=== PATIENT | male | born 1970 | race Caucasian/White ===

== ENCOUNTER 2025-05-01 22:51 | Emergency (ER) | payer OTHER, SELFPAY ==
--- OUTSIDE RECORDS SUMMARY | 2025-05-01 23:04 | XMS_ITS | Encounter Summary ---
Author Organization [facility] Address [address] [place] [address] Care Team Providers Care Reel And Rewinder Operator Name Role Phone Sylvie Cardenas MD Primary Care Provider [phone] Encounter Details Date Type Department Care Team (Late st Contact Info) Description 04/30/2025 Orders Only [facility] [address] [address] Sylvie Cardenas MD [address] [place] [address] Encounter for preventive care; Colon cancer screening Social History Tobacco Use Types Packs/Day Years Used Date Smoking Tobacco: Never Smokeless Tobacco: Never Alcohol Use Standard Drinks/Week Comments Never 0 (1 standard drink = 0.6 oz pur e alcohol) Sex and Gender Information Value Date Recorded Sex Assigned at Not on file Legal Sex Male 6:51 PM EDT Gender Identity Not on file Sexual Orientation Not on file documented as of this encounter Plan of Treatment Scheduled Orders Name Type Priority Associated Diagnoses Orde r Schedule Cologuard colon cancer screening Lab Routine Encounter for preventive care Colon cancer screening Expected: 04/30/2025 (Approximate), Expires: 04/30/2026 documented as of this encounter Visit Diagnoses Diagnosis Encounter for preventive care Colon cancer screening Special screening for malignant neoplasms, colon documented in this encounter Care Teams Reel And Rewinder Operator Relationship Specialty Start Date End Date Sylvie Cardenas MD [address] [place] [address] PCP - General Family Medicine 06/05/23 documented as of this encounter
[2025-05-01 23:08] VITALS: BP 150/99; PULSE 86; TEMP 37; O2SAT 98; BMI 56.9
--- NOTE | 2025-05-02 00:06 | ED.ANIMALBI1 ---
HPI - Animal Bite General Chief Complaint: Animal Bite Stated Complaint: DOG BITE Time Seen by Provider: 05/01/25 23:14 Source: patient Source comment: Dog bite on 04/28/25 from unfamiliar dog that was on his property. Been using Tylenol, Ibuprofen, Neosporin and soaking in Epsom Salt to treat area on left hand palm and top of hand near thumb. Area is red and swelling is increasing in amount. Notes keeping bandages on area and drainage of clear to red color noted when bandage removed. Notes increase in level of pain in hand in last 24 hours. Trouble sleeping due to increase in pain. Limited movement of left index finger due to swelling and pain. Mode of arrival: walk-in Limitations: no limitations History of Present Illness HPI narrative: This 54-year-old male presents for evaluation of pain and swelling in his left hand. The patient lives in [place] near [facility]. He states on Monday he was out gathering up his chickens who were outside and there was a dog on a path near his house. He thought the dog had likely been at a local training facility nearby and gotten away from its grinder set up operator thread. He told the dog to sit down which it did and the patient attempted to look at the tags on the dog's collar when it bit him in the left hand. He has a puncture wound in his left thenar eminence and on the dorsal aspect of his left index finger. He is concerned that he may have a fracture of the first metacarpal on the left hand because he is having pain and swelling in this area and is having a hard time bending his fingers especially the left index finger. He has been soaking it in Epsom salt water. He denies any fevers or chills. He has no lymphangitic streaking. He does not know the date of his last tetanus shot. The patient is not concerned that the dog would have rabies as he states it was clearly somebody's pet, it was well-groomed, well behaved and had several tags on it indicating that it was registered and likely immunized. He does not wish to pursue rabies immunizations. Related Data Home Medications ?Medication ?Instructions ?Recorded ?Confirmed alprazolam 0.25 mg tablet (Xanax) 0.25 mg PO DAILY 05/01/25 05/01/25 citalopram 40 mg tablet (Celexa) 40 mg PO DAILY 05/01/25 05/01/25 Allergies Allergy/AdvReac Type Severity Reaction Status Date / Time No Known Drug Allergies Allergy Verified 05/01/25 23:57 Review of Systems ROS Status of ROS 10 or more systems reviewed and unremarkable except as noted in history and below PFSH PFSH Social History Little interest or pleasure in doing things: not at all Feeling down, depressed, or hopeless: not at all Exam Narrative Exam Narrative: Vital signs and Nursing Notes reviewed: Patient is afebrile with a normal pulse, blood pressure is elevated 150/99, he is not hypoxic with pulse ox of 98% on room air General: Awake, alert, oriented, no acute distress, lying comfortably on the stretcher HEENT: Normocephalic atraumatic, mucous membranes are moist and pink, eyes are clear, normal conjunctiva, vision is grossly intact Neck: Supple, no meningeal signs, no anterior or posterior cervical lymphadenopathy Chest: Lungs are clear to auscultation with good air entry, there is no wheezing rhonchi or rales appreciated no accessory muscle use, patient is speaking in complete sentences-no chest wall tenderness to palpation CVS: Regular rate and rhythm S1-S2, no murmurs rubs or gallops, pulses are brisk and equal bilaterally ABD: Soft, nondistended, nontender, no rebound guarding or rigidity, bowel sounds are normal, no pulsatile masses appreciated Extremities: There is tenderness and swelling in the left hand, there is a puncture wound in the left thenar eminence, there are 3 puncture wounds over the dorsal aspect of the left index finger with swelling and tenderness of the MCP joint of this finger as well as additional swelling of the index and ring fingers. The patient is not able to make a complete fist. Capillary refill in the extremity is normal. There is no lymphangitic streaking noted. Skin: Normal in appearance without rash,pallor, petechiae or purpura Neuro: No focal deficits Constitutional Vital Signs, click to edit/add: Last Vital Signs Temp 98.6 F 05/01/25 23:08 Pulse 86 05/01/25 23:08 Resp 16 05/01/25 23:08 BP 150/99 H 05/01/25 23:08 Pulse Ox 98 05/01/25 23:08 O2 Del Method Room Air 05/01/25 23:08 Course Vital Signs Vital signs: Vital Signs Temperature 98.6 F 05/01/25 23:08 Pulse Rate 86 05/01/25 23:08 Respiratory Rate 16 05/01/25 23:08 Blood Pressure 150/99 H 05/01/25 23:08 Pulse Oximetry 98 05/01/25 23:08 Oxygen Delivery Method Room Air 05/01/25 23:08 Temperature 98.6 F 05/01/25 23:08 Pulse Rate 86 05/01/25 23:08 Respiratory Rate 16 05/01/25 23:08 Blood Pressure 150/99 H 05/01/25 23:08 Pulse Oximetry 98 05/01/25 23:08 Oxygen Delivery Method Room Air 05/01/25 23:08 MDM - Animal Bite MDM Narrative Medical decision making narrative: This 54-year-old male who is right-hand dominant presents for evaluation of a dog bite to the left hand that occurred 3 days ago. The patient was outside gathering up his chickens when he noticed a dog on a trail. The dog sat down and he attempted to look at his collar to contact the dog's grinder set up operator thread when the dog bit him. He states the dog was well-groomed and had a collar with tags on it indicating he is likely somebody's pet. The patient declined rabies series. His tetanus shot was many years ago. Tetanus was updated. He has a puncture wound on his left thenar eminence with some mild swelling as well as 3 puncture wounds on his left index finger with swelling at the MCP joint and on the dorsum of the hand as well as the long and ring fingers. The patient is not able to make a complete fist. He is otherwise neurologically intact. X-ray of the extremity does not show any fracture dislocation or foreign body. An IV was placed and he was given 3 g of Unasyn in addition to his tetanus. He was given IV Toradol for the pain and to help some of the inflammation. Routine labs are reviewed. He has a normal white count and hemoglobin. Electrolytes are normal with the exception of a glucose of 190 however the patient was eating a Nut[employer]ov[employer] but he during my exam. The results of the labs and x-ray were discussed with him. I suggest that he be admitted for several more doses of IV antibiotics but he declined admission. He does agree to return to the emergency department for increasing pain, swelling, lymphangitic streaking or fever. Will be discharged home with a prescription for Augmentin 875 mg for the next 10 days, [place] and ibuprofen. He was encouraged to continue soaking his hand in warm Epsom salt water. Lab Data Labs: Lab Results 05/02/25 Range/Units 00:08 WBC 7.9 (4.0-11.0) 10^3/uL RBC 4.36 L (4.70-6.10) 10^6/uL Hgb 14.1 (14.0-18.0) g/dL Hct 40.8 L (42.0-54.0) % MCV 93.6 (80.0-94.0) fL MCH 32.3 (25.9-34.0) pg MCHC 34.6 (29.9-35.2) g/dL RDW 11.6 (11.0-15.0) % Plt Count 236 (150-450) 10^3/uL MPV 9.6 (9.5-13.5) fL Neut % (Auto) 69.7 (43.0-75.0) % Lymph % (Auto) 18.3 L (20.5-60.0) % [place] % (Auto) 9.7 (1.7-12.0) % Eos % (Auto) 1.7 (0.9-7.0) % Baso % (Auto) 0.5 (0.2-2.0) % Neut # (Auto) 5.5 (1.4-6.5) 10^3/uL Lymph # (Auto) 1.4 (1.2-3.8) 10^3/uL [place] # (Auto) 0.8 (0.3-0.8) 10^3/uL Eos # (Auto) 0.1 (0.0-0.7) 10^3/uL Baso # (Auto) 0.0 (0.0-0.1) 10^3/uL Abs Immat Gran (auto) 0.01 (0.00-0.03) 10^3/uL Imm/Tot Granulo (auto) 0.1 (0.0-0.5) % Sodium 136 (136-145) mmol/L Potassium 3.9 (3.5-5.1) mmol/L Chloride 102 (98-107) mmol/L Carbon Dioxide 20.3 L (21.0-32.0) mmol/L Anion Gap 17.6 BUN 11.0 (7.0-18.0) mg/dL Creatinine 0.98 (0.70-1.30) mg/dL Est GFR ( Amer) >60 (>=60 mL/min/1.73m^2) Est GFR (Non-Af Amer) >60 (>=60 mL/min/1.73m^2) BUN/Creatinine Ratio 11.2 Glucose 190 H (74-106) mg/dL Calcium 9.0 (8.5-10.1) mg/dL Discharge Plan Discharge Chief Complaint: Animal Bite Clinical Impression: Dog bite Patient Disposition: Home, Self-Care Time of Disposition Decision: 00:52 Condition: Good Prescriptions / Home Meds: No Action citalopram [Celexa] 40 mg tablet 40 mg PO DAILY alprazolam [Xanax] 0.25 mg tablet 0.25 mg PO DAILY Print Language: Serbian Instructions: Animal Bite (ED) Referrals: JUSTIN MUNGUIA [Primary Care Provider, Family Practice] - 1 week
[2025-05-02 00:19] LABS: Basophils Percent Auto 0.5 % (0.2-2.0); Eosinophils Absolute Auto 0.1 10^3/uL (0.0-0.7); Eosinophils Percent Auto 1.7 % (0.9-7.0); Hematocrit 40.8 % (42.0-54.0); Hemoglobin 14.1 g/dL (14.0-18.0); Immature Granulocytes Abs Auto 0.01 10^3/uL (0.00-0.03); Immature Granulocytes Pct Auto 0.1 % (0.0-0.5); Lymphocytes Absolute Auto 1.4 10^3/uL (1.2-3.8); Lymphocytes Percent Auto 18.3 % (20.5-60.0); Mean Corpuscular HGB Conc 34.6 g/dL (29.9-35.2); Mean Corpuscular Hemoglobin 32.3 pg (25.9-34.0); Mean Corpuscular Volume 93.6 fL (80.0-94.0); Mean Platelet Volume 9.6 fL (9.5-13.5); Monocytes Absolute Auto 0.8 10^3/uL (0.3-0.8); Monocytes Percent Auto 9.7 % (1.7-12.0); Neutrophils Absolute Auto 5.5 10^3/uL (1.4-6.5); Neutrophils Percent Auto 69.7 % (43.0-75.0); Platelet Count 236 10^3/uL (150-450); Red Blood Count 4.36 10^6/uL (4.70-6.10); Red Cell Distribution Width 11.6 % (11.0-15.0); White Blood Count 7.9 10^3/uL (4.0-11.0)
[2025-05-02] MEDS: ADACEL DIPH,PERTUSS(ACELL),TET VAC/PF 0.5 ML ADULT SYRINGE IM (00:23)
[2025-05-02] MEDS: AMPICILLIN SODIUM/SULBACTAM NA 3 GM in 0.9 % SODIUM CHLORIDE 100 ML IV (00:23)
[2025-05-02 00:26] LABS: Anion Gap 17.6; BUN Creatinine Ratio 11.2; Carbon Dioxide 20.3 mmol/L (21.0-32.0); Chloride 102 mmol/L (98-107); Estimated GFR (African America >60 (>=60 mL/min/1.73m^2); Estimated GFR (Non-African Ame >60 (>=60 mL/min/1.73m^2); Glucose 190 mg/dL (74-106); Potassium 3.9 mmol/L (3.5-5.1); Sodium 136 mmol/L (136-145)
[2025-05-02] MEDS: KETOROLAC TROMETHAMINE 30 MG/ML VIAL IVP (00:46)
[2025-05-02] MEDS: ONDANSETRON 4 MG RAPDIS TABLET SL (01:08)
[2025-05-02] MEDS: HYDROCODONE/ACET 5-325 MG TABLET PO (01:09)
== END 2025-05-02 01:16 | disposition home or self-care (01) ==
PROVIDERS: Emergency Provider Emergency Medicine; PCP Family Medicine
DX: S61.432A Puncture wound without foreign body of left hand, initial encounter (principal); W54.0XXA Bitten by dog, initial encounter; Z23 Encounter for immunization
CPT/HCPCS: 36415; 73130; 80048; 85025; 90471; 90715; 96374; 96375; 99285; J0295; J1885; Q0162